=== PATIENT | female | born 1950 | race Hispanic/Latino ===

== ENCOUNTER 2018-07-30 15:37 | Outpatient (CLI) | payer MEDICARE, BC | END 2018-07-30 15:38 | disposition home or self-care (01) | LOC: RAD 15:37 | DX: Z12.31 Encounter for screening mammogram for malignant neoplasm of breast (principal) ==

== ENCOUNTER 2018-07-31 09:52 | Outpatient (CLI) | payer MEDICARE, BC | END 2018-07-31 09:53 | disposition home or self-care (01) | LOC: RAD 09:52 ==